=== PATIENT | male | born 1965 | race African-American/Black ===

== ENCOUNTER 2017-02-04 10:11 | Observation (INO) | payer BC ==
[~2017-02-04] VITALS: Ht 180.3 cm; Wt 86.6 kg
--- NOTE | ~2017-02-04 | EKG ---
PATIENT: JENNIFER ZARAGOZA UNIT #: [id number] Ventricular Rate: 89 BPM Atrial Rate: 89 BPM P-R Interval: 148 ms QRS Duration: 82 ms Q-T Interval: 358 ms QTC Calculation(Bezet): 435 ms P [place]: 77 degrees Calculated R [place]: -56 degrees Calculated T [place]: 51 degrees Diagnosis Line: Normal sinus rhythm Diagnosis Line: Left anterior fascicular block Diagnosis Line: Abnormal ECG Diagnosis Line: No previous ECGs available Diagnosis Line: Confirmed by MALOU MUNSON MD ([id number]) on 02/05/2017 Diagnosis Line: 7:36:28 PM INTERPRETING MD: ARPIT CARROLL
--- NOTE | ~2017-02-04 | CR63 ---
[facility] A Service of [facility] & [facility] RADIOLOGY TEXT RESULTS PATIENT: JENNIFER ZARAGOZA JR LOCATION: [facility] : 61 UNIT #: [id number] AGE: [address]: Domenico Garza MD SEX: M ORDER DR: [id number] [facility] [address] [place], [place] [address] [id number] E MR#: [id number] Acc #: [id number] NAME: JENNIFER ZARAGOZA : 1965 SEX: M STUDY DATE/TIME: 02/04/2017 12:37 UNIT: [facility] ROOM: STUDY DESCRIPTION: CR Chest 2 View Attending Physician: Domenico Garza M.D. Ordering Physician: Domenico Garza M.D. Primary Care Physician: No Primary Care Physician MEDICAL IMAGING REPORT This report is preliminary unless electronic signature is present EXAM Chest 2 views 02/04/2017 1237 hours HISTORY 51-year-old man with weakness, diaphoresis and overheating today with loss of consciousness and leukocytosis. COMPARISON None. FINDINGS Upright PA and lateral views of the chest demonstrate heart size within normal limits. Mediastinal and hilar contours are normal. The lungs are well expanded and clear. There is no effusion or pneumothorax. IMPRESSION No acute cardiopulmonary findings. Dictated by... Jessica Toro M.D. THIS IS AN ELECTRONICALLY VERIFIED REPORT Jessica Toro M.D. at 02/04/2017 4:16 PM LUDWIG/lana TD: 02/04/2017 15:43 JOB #: [id number] MEDICAL IMAGING REPORT Page 1 of 1 COPY
--- NOTE | ~2017-02-04 | HP ---
Unit #: [id number] #: [id number] Patient: JENNIFER ZARAGOZA JR [id number] [address] [place], [place] [address] [id number] MR#: [id number] NAME: JENNIFER ZARAGOZA JR ROOM: 688[address] Age: 51 Sex: M Admission Date: 02/04/2017 : 1965 Attending Physician: Caitlin Asif M.D. Primary Care Physician: No Primary Care Physician HISTORY AND PHYSICAL CHIEF COMPLAINT Altered mental status, weak and unable to follow commands. HISTORY OF PRESENT ILLNESS The patient is a 51-year-old male with no significant past medical history, who presented to the emergency department for evaluation of the above. The patient states that he was in his usual state of health until the day of admission when he felt like he would pass out. 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 He states that he smelled a bad odor and then was sweaty and vomited. He denies ever losing consciousness. EMS was apparently called. Per EMS report, he was confused, oriented to person only. His blood pressure was elevated although the exact number is not documented in the record. He was brought to the emergency department for further evaluation. Upon arrival in the emergency department, the patient's initial pulse and blood pressure were 87 and 108/87 respectively. The patient was awake and alert, oriented x3. CT of the head showed nothing acute. Chest x-ray shows nothing acute. Laboratory notable for white blood cell count of 20. Urinalysis shows 2+ leukocyte esterase with 10 to 25 white blood cells but no bacteria and nitrite negative. He was given 2 L of normal saline as well as 4 mg of Zofran in the emergency department. He is being admitted to [facility] for evaluation and further treatment. Of note the patient denies any similar episode. He states that he had a banana for breakfast this morning as per his usual routine. He denies any chest pain. No cough or cold symptoms. No fever. No palpitations. No bowel or bladder problems. He did not bite his tongue. No bowel or bladder incontinence. PAST MEDICAL HISTORY None. PAST SURGICAL HISTORY None. 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 There is no tobacco, alcohol or illicit drug use. FAMILY HISTORY Unit #: [id number] #: [id number] Patient: JENNIFER ZARAGOZA JR Family history is notable for his mother having dementia; his dad had prostate cancer and is . ALLERGIES No known allergies. HOME MEDICATIONS None. REVIEW OF SYSTEMS A complete review of systems is negative except as indicated in the HPI. The patient states that he lives an active lifestyle. He is a runner and typically runs between 20 and 30 miles a week. He denies ever having a stress test. He has never had a cardiac catheterization. DIAGNOSTIC STUDIES CARDIOVASCULAR: EKG shows normal sinus rhythm with a rate of 89 beats per minute. IMAGING: Chest x-ray shows nothing acute. CT of the head is negative. LABORATORY: Urinalysis notable for 2+ leukocyte esterase, 10 to 25 white blood cells. Urine tox screen is negative. Troponin is less than 0.05. Complete blood count notable for white blood cell count of 21.5, with 83% neutrophils, 5% bands, 6% lymphocytes, tear drop cells are present as well as 19 smudge cells noted. Comprehensive metabolic panel notable for BUN and creatinine of 24 and 1 respectively, total protein is 8.7, albumin is 5.1, lipase 18. Alcohol level is less than 5. PHYSICAL EXAMINATION VITAL SIGNS: Temperature is 97.5. Pulse 87. Respirations 20. Blood pressure 108/87. Oxygen saturation is 98% on room air. GENERAL: The patient is a very pleasant -[place] male who is awake and alert, sitting in a chair. HEENT: The head is atraumatic. Mucous membranes are moist. NECK: Neck is supple. Trachea is midline. CARDIOVASCULAR: Regular rate and rhythm. LUNGS: Lungs are clear to auscultation bilaterally with no increased work of breathing. ABDOMEN: Abdomen is soft, nontender, with bowel sounds present in all four quadrants. EXTREMITIES: Nontender, with no pedal edema. NEUROLOGIC: The patient is awake and alert. He is oriented x3. There is no facial asymmetry. Finger to nose is intact. There is no appreciable pronator drift. PSYCHIATRIC: The patient is somewhat anxious. He is very cooperative. SKIN: Skin of examined areas is warm and dry. ASSESSMENT The patient is a 51-year-old male with: 1. Near syncope. 2. Altered mental status. Per EMS report the patient was oriented to person only. He was noted to have elevated blood pressure at the scene. He has been oriented x3 since arriving in the emergency department. He has no focal deficits. 3. Leukocytosis with smudge cells noted on the smear. The patient does Unit #: [id number] #: [id number] Patient: JENNIFER ZARAGOZA JR not have any obvious infection. Concern is for possible leukemia. Differential notable for 83% neutrophils, 5% bands, 6% lymphocytes. 4. Pyuria. The patient denies any urinary symptoms. PLAN 1. Admit for observation to intermediate level. 2. Normal saline at 125 mL an hour. 3. Regular diet. 4. Two-D echo for further evaluation of near syncope. 5. Orthostatics q. shift. 6. Serial cardiac enzymes. 7. TSH, B12 and folate. 8. Neuro checks. 9. Blood cultures x2. 10. Urine culture and sensitivity on urine in the lab. 11. Consult Dr. West regarding leukocytosis and smudge cells. 12. P.r.n. Derek. 13. Repeat labs in the morning. 14. SCDs for DVT prophylaxis. 15. Additional workup and consultants based on above. Dictated by Caitlin Asif M.D. EVNKATA/loretta TD: 02/04/2017 17:22 JOB #: [id number] HISTORY AND PHYSICAL Page 1 of 1 X Caitlin Asif MD X HISTORY AND PHYSICAL
--- NOTE | ~2017-02-04 | CT71 ---
[facility] A Service of [facility] RADIOLOGY TEXT RESULTS PATIENT: JENNIFER ZARAGOZA JR LOCATION: [facility] : 61 UNIT #: [id number] AGE: [address]: Caitlin Asif MD SEX: M ORDER DR: [id number] [address] [address] [id number] MR#: [id number] Acc #: [id number] NAME: JENNIFER ZARAGOZA : 1965 SEX: M STUDY DATE/TIME: 02/04/2017 11:31 UNIT: DANITZA ROOM: STUDY DESCRIPTION: CT Head Wo Contrast Attending Physician: Domenico Garza M.D. Ordering Physician: Domenico Garza M.D. Primary Care Physician: Primary Care Physician No MEDICAL IMAGING REPORT This report is preliminary unless electronic signature is present EXAM Noncontrast head CT HISTORY 51-year-old male weakness, unable follow commands, sudden onset this morning. TECHNIQUE This CT exam was performed with one or more of the following radiation dose reduction techniques: automatic control, adjustment of mA and/or kV according to patient size, and iterative reconstruction. FINDINGS Axial noncontrast imaging of the brain demonstrates brain parenchyma to be normal. No evidence of mass, mass effect or midline shift. No hemorrhage or abnormal extraaxial fluid collections. Ventricles, sulci, and basilar cisterns appear normal. Bony calvaria skull base mastoids unremarkable. Minimal ethmoid sinus mucosal disease. IMPRESSION No acute intracranial abnormality identified. Minimal ethmoid sinus mucosal disease. Dictated by... [facility] A Service of [facility] RADIOLOGY TEXT RESULTS PATIENT: JENNIFER ZARAGOZA JR LOCATION: [facility] : 61 UNIT #: [id number] AGE: [address]: Caitlin Asif MD SEX: M ORDER DR: Abhinav Ritter M.D. THIS IS AN ELECTRONICALLY VERIFIED REPORT Abhinav Ritter M.D. at 02/04/2017 5:13 PM Taylor TD: 02/04/2017 15:07 JOB #: [id number] MEDICAL IMAGING REPORT Page 1 of 1 COPY
--- NOTE | ~2017-02-04 | CO ---
Unit #: [id number] #: [id number] Patient: JENNIFER ZARAGOZA JR [id number] [address] [place], [place] [address] [id number] I MR#: [id number] NAME: JENNIFER ZARAGOZA JR ROOM: 329 Age: 51 Sex: M Admission Date: 02/04/2017 : 1965 Attending Physician: Dave Gay M.D. Primary Care Physician: No Primary Care Physician Consultation Date: 02/06/2017 CONSULTATION REPORT REQUESTING PHYSICIAN Consultation requested by Dr. Dave Gay. REASON FOR CONSULTATION Leukocytosis, presence of smudge cells. HISTORY OF PRESENT ILLNESS Mr. Jennifer Zaragoza is 51 years old with no significant past medical history, who was admitted to the hospital on February 04, 2017 after being brought in by EMS. 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 He apparently became violently sick, nauseous and was found by the EMS to be confused and disoriented and brought to the hospital. At the time of this admission, his white count was elevated at 21,500. His hemoglobin was 15.7 and platelet count was 312,000. The smear apparently had 83% lymphocytes with tear drops and smudge cells of 19%. To be noted, his CBC was 17.9 on February 04 later in the day, February 05 was 6.5 and today is 5000. Hemoglobin is 11.8 and platelet count is 199,000. Mr. Zaragoza had been hydrated vigorously and tells me that he has overall been feeling better. No fevers, night sweats, chills prior to the episode and he was feeling well the morning before he went. He normal runs about 10 miles a day and has been doing so since he was 16 after joining the . No prior exposure to any toxins. PAST MEDICAL HISTORY No significant past medical illnesses. MEDICATIONS Does not take any regular medications. PAST SURGICAL HISTORY No recent surgical history, none recent. FAMILY HISTORY Negative for blood disorders. SOCIAL HISTORY Never smoked. Does not drink any alcohol. 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 REVIEW OF SYSTEMS A 14-point review of systems taken. Unit #: [id number] #: [id number] Patient: JENNIFER ZARAGOZA JR CONSTITUTIONAL: As discussed above. EYES: Negative. EARS, NOSE, MOUTH, THROAT: Negative. CARDIOVASCULAR: Negative. RESPIRATORY: Negative. GASTROINTESTINAL: Negative. GENITOURINARY: Negative. NEUROLOGIC: Confusion os disorientation at the time of presentation. ALLERGY/LYMPHATIC: As above. SKIN: Negative. PSYCHIATRIC: Negative. PHYSICAL EXAMINATION GENERAL: A very pleasant middle-aged man awake, alert, oriented x3. VITAL SIGNS: Temperature 97.6, pulse 59, respiratory rate is 19, blood pressure is 114/71, oxygen saturation 100% on room air. HEENT: Shows pupils equal, react well to light. No pallor, icterus. Mucous membranes are moist. NECK: No adenopathy, JVD, thyromegaly. CARDIOVASCULAR: First and second heart sounds are heard with no murmurs, gallops, or rubs. LUNGS: Chest expansion symmetric. Bilaterally equal normal breath sounds. ABDOMEN: Soft, nontender. EXTREMITIES: Warm with good pulses. No edema, cyanosis, or clubbing. NEUROLOGIC: Awake, alert, oriented x3 without any focal findings. DIAGNOSTIC STUDIES LABORATORY: CBC as discussed. Her urine culture has grown more than 100,000 colony forming units of E. coli. His blood cultures showed no growth. Troponin is less than 0.03. TSH was 0.52. B12 was 296. Folic acid was 8.2. A complete metabolic panel at time of admission showed an albumin of 3.2. ASSESSMENT AND PLAN Mr. Jennifer Zaragoza is 51 years old with no significant past medical problems, admitted after he was confused, disoriented with nausea, vomiting after exposure to apparently some chicken broth powder. He does have a urinary tract infection for which antibiotics were started on February 05, 2017. His normal blood counts at this point do not suggest that these smudge cells are important and I reassured him. I will review his blood smear to confirm that this is indeed the case but given his normal white count differential and normal platelets, I do not think these are of any importance. Thank you for allowing me to participate in the care. Dictated by... Juan Badillo TD: 02/06/2017 16:27 JOB #: [id number] Unit #: [id number] #: [id number] Patient: JENNIFER ZARAGOZA JR CONSULTATION REPORT Page 1 of 1 X Silver Riley MD CONSULTATION REPORT
--- NOTE | ~2017-02-04 | DS ---
Unit #: [id number] #: [id number] Patient: JENNIFER ZARAGOZA JR [id number] [address] [place], [place] [address] [id number] I MR#: [id number] NAME: JENNIFER ZARAGOZA JR ROOM: 329 Age: 51 Sex: M Admission Date: 02/04/2017 : 1965 Discharge Date: 02/06/2017 Attending Physician: Dave Gay M.D. Primary Care Physician: No Primary Care Physician DISCHARGE SUMMARY PERTINENT HISTORY AND HOSPITAL COURSE The patient is a 51-year-old man with no prior past medical history who presented with symptoms of dizziness, along with sweating, with a feeling that he was going to pass out; however, he did not pass out. He did have one episode of vomiting. On admission the patient initially had an elevated white count of 21,000; however, this immediately returned to normal range the next day. White count at discharge is 5 with a normal differential at discharge. He was found to have a urinary tract infection. He was started empirically on antibiotic, Rocephin 1 gram IV daily. Urine cultures grew E-coli, which was sensitive to Bactrim, ampicillin, ceftriaxone and nitrofurantoin. He will be discharged on Keflex. At discharge the patient is asymptomatic. Vitals are stable. DISCHARGE MEDICATIONS Keflex 500 mg p.o. q.12 hours for 7 days. DISCHARGE DIAGNOSES 1. Pyelocystitis with Escherichia coli. 2. Near syncope. 3. Reactive leukocytosis. DISCHARGE INSTRUCTIONS Follow up with primary care physician. Dictated by... Juan Nowak/tammy TD: 02/07/2017 13:42 JOB #: [id number] Unit #: [id number] #: [id number] Patient: JENNIFER ZARAGOZA JR DISCHARGE SUMMARY Page 1 of 1 X X DISCHARGE SUMMARY
--- NOTE | ~2017-02-04 | CO ---
Unit #: [id number] #: [id number] Patient: JENNIFER ZARAGOZA JR [id number] [facility]. [place] [address] [facility]. [place], [place] [address] [id number] I MR#: [id number] NAME: JENNIFER ZARAGOZA JR ROOM: 329 Age: 51 Sex: M Admission Date: 02/04/2017 : 1965 Attending Physician: Dave Gay M.D. Primary Care Physician: No Primary Care Physician CONSULTATION REPORT REASON FOR CONSULTATION Abnormal echocardiogram. HISTORY OF PRESENT ILLNESS This is a 51-year-old male who was admitted with altered mental status. He says he was at work on Friday and felt nauseated and weak. He felt as if he may have a fever. He was sent to the emergency room with apparent near syncopal episode and altered mental status. He was found to have E-coli urinary tract infection. He was noted to have leukocytosis with white count of 21.5. His blood cultures were negative. Echocardiogram was obtained, which showed possible chordae tendineae rupture, for which cardiology was consulted. From a cardiac standpoint, the patient has no prior cardiac history or testing. He denies a history of hypertension, hyperlipidemia or diabetes. He has not seen a physician in 17 years. He states he is reasonably active where he runs approximately 80 miles a week. He has no symptoms. He denies current chest pain, shortness of breath, palpitations or dizziness. Orthostatics obtained this admission were negative. He has been normotensive. PAST MEDICAL HISTORY 1. Two-D echocardiogram, 02/05/2017, shows an ejection fraction equal to 60% with mild thickening of the anterior mitral leaflet suggestive of chordae tendineae rupture. There is mild tricuspid regurgitation. No mitral regurgitation. Right ventricular systolic pressure 31 mmHg. 2. Lifelong nonsmoker. PAST SURGICAL HISTORY No previous surgeries. SOCIAL HISTORY The patient is single and lives at home alone. He works in production. He has never smoked. He denies illicit drug and alcohol use. FAMILY HISTORY Negative for coronary artery disease. ALLERGIES No known drug allergies. HOME MEDICATIONS No current medications. Unit #: [id number] #: [id number] Patient: JENNIFER ZARAGOZA REVIEW OF SYSTEMS CONSTITUTIONAL: Recent complaint of weakness and subjective fever. No weight gain or weight loss. HEENT: Negative for hearing or visual changes or difficulty with swallowing. Denies dizziness. CARDIOVASCULAR: Has no symptoms of angina. Denies palpitations. No paroxysmal nocturnal dyspnea or orthopnea. Questionable near syncope. RESPIRATORY: Negative for dyspnea, cough or hemoptysis. GASTROINTESTINAL: No abdominal pain, nausea or vomiting at this time. EXTREMITIES: Negative for lower extremity edema. PHYSICAL EXAMINATION VITAL SIGNS: Blood pressure 114/71, heart rate 59, temperature 97.6. GENERAL: This is a well-developed 51-year-old male who is in no acute respiratory distress. NEUROLOGIC: He is awake, alert and oriented. There are no focal weaknesses. NECK: Trachea is midline. No thyromegaly or lymphadenopathy. No jugular venous distention. HEART: S1, S2. Heart sounds are normal. No murmurs, no rubs, no clicks. Regular rate and rhythm. LUNGS: Clear without rales, rhonchi or wheezes. ABDOMEN: Soft, nontender with bowel sounds present. EXTREMITIES: Without leg edema. Pedal pulses are palpable. DIAGNOSTIC STUDIES LABORATORY STUDIES: Hemoglobin 11.8, hematocrit 34.6, platelet count 199, white count 5. Sodium 140, potassium 3.7, BUN 17, creatinine 0.8, glucose 87. TSH 0.52. Troponin less than 0.03. IMAGING: Chest x-ray shows no active disease. CARDIOVASCULAR STUDIES: Electrocardiogram shows normal sinus rhythm with a rate of 89 beats per minute with left anterior fascicular block and left axis deviation. IMPRESSION 1. Near syncope. 2. Altered mental status, resolved. 3. E-coli urinary tract infection. 4. Pyelonephritis. PLAN 1. Cardiology was consulted for abnormal echocardiogram. In review of echocardiogram, the patient has normal left ventricular systolic function. There is no evidence of ruptured mitral valve cord. 2. No cardiac workup is needed at this time. Thank you for allowing us to assist with this patient's care. Dictated by... Hans Aguilar M.D. AEP/tammy TD: 02/07/2017 12:20 Unit #: [id number] #: [id number] Patient: JENNIFER ZARAGOZA JOB #: [id number] CONSULTATION REPORT Page 1 of 1 X David Hall APRN X CONSULTATION REPORT
[2017-02-04 10:50] LABS: BASOPHIL% 0.1 % (0-2.5); DIFF IND YES; EOSINOPHIL# 0.1 X10e3 (0-0.7); EOSINOPHIL% 0.5 % (0.0-7.0); HEMATOCRIT 47.8 % (38.0-50.0); HEMOGLOBIN 15.7 gm/dL (13.0-16.0); LYMPHOCYTE# 0.6 X10e3 (1.0-3.5); MEAN CELL VOLUME 86.6 FL (83-96); MEAN CORPUSCULAR HEMOGLOBIN 28.4 PG (28-34); MEAN CORPUSCULAR HGB CONC 32.8 g/dL (30-36); MEAN PLATELET VOLUME 7.1 FL (6.5-11.5); MONOCYTE# 0.7 X10e3 (0-1.0); MONOCYTE% 3.5 % (3.0-12.0); NEUTROPHIL% 92.9 % (40-75); PLATELET COUNT 312 X10e3 (140-420); RED BLOOD COUNT 5.51 X10e (3.90-5.60); RED CELL DISTRIBUTION WIDTH 14.3 % (11.0-15.5); WHITE BLOOD COUNT 21.5 X10e3 (4.0-10.5)
[2017-02-04 10:58] LABS: POC - CKMB 5.1 ng/mL (0.0-7.9); POC - TROPONIN <0.05 ng/mL (<=0.05)
[2017-02-04 11:09] LABS: ALBUMIN SERUM 5.1 g/dL (3.5-5.0); ALKALINE PHOSPHATASE 67 U/L (32-92); ALT (SGPT) 26 U/L (10-40); AST (SGOT) 35 U/L (10-42); BILIRUBIN,TOTAL 0.7 mg/dL (0.2-2.0); BLOOD UREA NITROGEN 24 mg/dL (9-23); CALCIUM SERUM 10.2 mg/dL (8.4-10.2); CARBON DIOXIDE 27 mmol/L (22-31); CHLORIDE 104 mmol/L (100-111); GLOM FILT RATE Estimated 99.2 mL/min (>60); GLUCOSE FASTING 106 mg/dL (70-110); LIPASE 18 U/L (22-51); POTASSIUM 4.7 mmol/L (3.5-5.1); PROTEIN TOTAL SERUM 8.7 g/dL (6.0-8.3); SODIUM 139 mmol/L (135-145)
[2017-02-04 11:13] LABS: PLATELET ESTIMATE NORMAL (NORMAL)
[2017-02-04 11:14] LABS: ALCOHOL BLOOD <5 mg/dL (0)
[2017-02-04 13:42] LABS: BASOPHIL% 0.1 % (0-2.5); EOSINOPHIL% 0.2 % (0.0-7.0); HEMATOCRIT 41.1 % (38.0-50.0); LYMPHOCYTE# 0.4 X10e3 (1.0-3.5); LYMPHOCYTE% 2.1 % (17.0-45.0); MEAN CELL VOLUME 85.9 FL (83-96); MEAN CORPUSCULAR HEMOGLOBIN 28.6 PG (28-34); MEAN CORPUSCULAR HGB CONC 33.2 g/dL (30-36); MEAN PLATELET VOLUME 6.7 FL (6.5-11.5); MONOCYTE# 0.6 X10e3 (0-1.0); MONOCYTE% 3.5 % (3.0-12.0); NEUTROPHIL# 16.8 X10e3 (1.5-7.1); NEUTROPHIL% 94.1 % (40-75); PLATELET COUNT 234 X10e3 (140-420); RED BLOOD COUNT 4.79 X10e (3.90-5.60); WHITE BLOOD COUNT 17.9 X10e3 (4.0-10.5)
[2017-02-04 13:48] LABS: HEMOGLOBIN 13.7 gm/dL (13.0-16.0)
[2017-02-04 13:49] LABS: DIFF IND YES
[2017-02-04 14:14] LABS: URINE SOURCE CLEAN CATCH
[2017-02-04] MEDS ORDERED: NO MEDICATIONS (14:15)
[2017-02-04 14:30] LABS: POC - CKMB 3.1 ng/mL (0.0-7.9); POC - TROPONIN <0.05 ng/mL (<=0.05)
[2017-02-04 14:33] LABS: URINE APPEARANCE CLEAR; URINE BILIRUBIN NEG (NEG); URINE BLOOD NEG (NEG); URINE COLOR YELLOW; URINE GLUCOSE NEG (NEG); URINE KETONE NEG (NEG); URINE LEUKOCYTE ESTERASE 2+ (NEG); URINE NITRATE NEG (NEG); URINE PROTEIN NEG (NEG); URINE SPECIFIC GRAVITY 1.018 (1.003-1.035); URINE UROBILINOGEN 0.2 MG/DL (NEG)
[2017-02-04 14:37] LABS: AMPHETAMINE NEG (NEG); BARBITURATES NEG (NEG); BENZODIAZEPINES NEG (NEG); COCAINE NEG (NEG); CULTURE INDICATED? YES; MARIJUANA NEG (NEG); OPIATES NEG (NEG); TRICYCLIC ANTIDEPRESSANTS NEG (NEG); U METHADONE NEG (NEG); URINE BACTERIA AUWI NEG (NEGATIVE); URINE SQUAMOUS EPITHELIAL CELL OCC /[HPF]
[2017-02-04 15:24] LABS: ANISOCYTOSIS SL; PLATELET ESTIMATE NORMAL (NORMAL)
[2017-02-04 19:05] LABS: %MB 1.4 % (0.0-4.0); MB 4.6 ng/ml
[2017-02-04 19:28] LABS: FOLATE (FOLIC ACID) 8.2 ng/mL (>5.8)
[2017-02-05 01:36] LABS: %MB 1.4 % (0.0-4.0); MB 3.6 ng/ml
[2017-02-05 06:09] LABS: HEMATOCRIT 36.8 % (38.0-50.0); HEMOGLOBIN 12.3 gm/dL (13.0-16.0); MEAN CELL VOLUME 86.7 FL (83-96); MEAN CORPUSCULAR HEMOGLOBIN 28.9 PG (28-34); MEAN CORPUSCULAR HGB CONC 33.4 g/dL (30-36); RED BLOOD COUNT 4.24 X10e (3.90-5.60); RED CELL DISTRIBUTION WIDTH 14.2 % (11.0-15.5)
[2017-02-05 06:12] LABS: WHITE BLOOD COUNT 6.5 X10e3 (4.0-10.5)
[2017-02-05 07:16] LABS: ALBUMIN SERUM 3.2 g/dL (3.5-5.0); BILIRUBIN,TOTAL 0.8 mg/dL (0.2-2.0); BUN/CREATININE RATIO 26.25; CALCIUM SERUM 8.3 mg/dL (8.4-10.2); CREATININE SERUM 0.8 mg/dL (0.6-1.4); GLOM FILT RATE Estimated 118.3 mL/min (>60); POTASSIUM 3.8 mmol/L (3.5-5.1); PROTEIN TOTAL SERUM 5.8 g/dL (6.0-8.3)
[2017-02-06 05:24] LABS: BASOPHIL% 0.4 % (0-2.5); EOSINOPHIL# 0.1 X10e3 (0-0.7); EOSINOPHIL% 2.8 % (0.0-7.0); HEMATOCRIT 34.6 % (38.0-50.0); HEMOGLOBIN 11.8 gm/dL (13.0-16.0); LYMPHOCYTE# 1.4 X10e3 (1.0-3.5); MEAN CELL VOLUME 85.6 FL (83-96); MEAN CORPUSCULAR HEMOGLOBIN 29.1 PG (28-34); MEAN PLATELET VOLUME 7.1 FL (6.5-11.5); MONOCYTE# 0.5 X10e3 (0-1.0); MONOCYTE% 10.2 % (3.0-12.0); NEUTROPHIL% 59.6 % (40-75); PLATELET COUNT 199 X10e3 (140-420); RED BLOOD COUNT 4.05 X10e (3.90-5.60); RED CELL DISTRIBUTION WIDTH 14.1 % (11.0-15.5)
[2017-02-06 05:38] LABS: DIFF IND NO
[2017-02-06 05:50] LABS: BUN/CREATININE RATIO 21.25; CALCIUM SERUM 8.4 mg/dL (8.4-10.2); CREATININE SERUM 0.8 mg/dL (0.6-1.4); GLOM FILT RATE Estimated 118.3 mL/min (>60); POTASSIUM 3.7 mmol/L (3.5-5.1)
[2017-02-06] MEDS ORDERED: KEFLEX500 MG PO (14:22)
== END 2017-02-06 14:44 | disposition home or self-care (01) | DRG 690 ==
LOC: CED 10:11 → CEDOF 15:15 → C3A PCU 15:15 → CED 17:12 → CEDOF 17:12 → C3A PCU 17:44
PROVIDERS: Emergency Medicine; Family Medicine; Internal Medicine
DX: N12 Tubulo-interstitial nephritis, not specified as acute or chronic (principal); B96.20 Unspecified Escherichia coli [E. coli] as the cause of diseases classified elsewhere; R55 Syncope and collapse; D72.829 Elevated white blood cell count, unspecified; N39.0 Urinary tract infection, site not specified
CPT/HCPCS: 36415; 70450; 71020; 80048; 80053; 80307; 81003; 82550; 82553; 82607; 82746; 83690; 84443; 84484; 85025; 85027; 87040; 87086; 87088; 87186; 93005; 93306; 96361; 96374; 99285; G0378; G0480; J0696; J2405